=== PATIENT | male | born 1935 | race Caucasian/White ===

== ENCOUNTER 2018-08-30 09:51 | Observation (INO) | payer MEDICARE ==
[2018-08-27 16:13] LABS: BASOPHILS % 0.5 % (0.0-1.0); EOSINOPHILS # (AUTO) 0.1 (0.0-0.4); EOSINOPHILS % 1.9 % (0.0-6.0); HEMATOCRIT 34.7 % (38.2-49.6); HEMOGLOBIN 10.9 g/dL (14.0-18.0); LYMPHOCYTES # (AUTO) 1.3 (1.0-3.2); LYMPHOCYTES % 17.5 % (18.0-39.1); MEAN CORPUSCULAR HEMOGLOBIN 29.5 pg (28-32); MEAN CORPUSCULAR HGB CONC 31.4 g/dL (31-35); MEAN CORPUSCULAR VOLUME 93.8 fL (81-99); MONOCYTES # (AUTO) 0.7 (0.2-0.8); MONOCYTES % 9.9 % (4.4-11.3); NEUTROPHILS # (AUTO) 5.2 (2.1-6.9); NEUTROPHILS % 69.8 % (38.7-80.0); PLATELET COUNT 262 x10e3/uL (140-360); RED CELL DISTRIBUTION WIDTH 15.6 % (11.7-14.4)
[2018-08-27 16:28] LABS: ANION GAP 12.2 mmol/L (8-16); CALCIUM 9.3 mg/dL (8.4-10.2); CREATININE, SERUM 2.03 mg/dL (0.72-1.25); POTASSIUM 4.2 mmol/L (3.5-5.1)
--- NOTE | 2018-08-27 16:51 | Diagnostic Imaging Report ---
EXAMINATION: CHEST 2 VIEWS INDICATION: ^PREOP COMPARISON: Chest radiograph dated 07/13/2015 FINDINGS: AP and lateral view TUBES and LINES: Left-sided dual-lead pacer. Right-sided AICD.. LUNGS/PLEURA: Calcified granulomas in the right lower lobe and left upper lobe. Bilateral interstitial prominence. No pleural effusion or pneumothorax. HEART AND MEDIASTINUM: Borderline enlarged cardiac silhouette. Sternotomy. BONES AND SOFT TISSUES: No acute osseous lesion. Soft tissues are unremarkable. UPPER ABDOMEN: No free air under the diaphragm. IMPRESSION: No acute thoracic abnormality. Signed by: Augusto Johnson MD on 08/27/2018 4:48 PM
[2018-08-30 08:10] LABS: INR 1.13
[2018-08-30 08:11] LABS: PARTIAL THROMBOPLASTIN TIME 32.6 seconds (23.8-35.5)
[~2018-08-30 09:51] MED LIST: ALPRAZOLAM0.25 MG PO; ASPIR 8181 MG PO; ATORVASTATIN CA20 MG PO; BUPIVACAINE 7.5MG/ML /DEXTROSE 82.5MG/ML 2 ML AMP INJ ONE; CARVEDILOL12.5 MG PO; CEFTRIAXONE SOD 1 GM/NS 50 ML 50 ML IV ONE; CRESTOR20 MG PO; FENOFIBRATE PO; FINASTERIDE5 MG PO; FLOMAX0.4 MG PO; FOLIC ACID1 MG PO; GABAPENTIN300 MG PO; GLIPIZIDE5 MG PO; ISOSORBIDE MONO60 MG PO; JANUVIA100 MG PO; KLOR-CON M2020 MEQ PO; LANTUS100 UNITS/ SQ; LASIX80 MG PO; LIDOCAINE 2%/ EPINEPHRINE 20ML MDV ONE; LISINOPRIL5 MG PO; MECLIZINE HCL12.5 MG PO; MUPIROCIN 2% OINT 22 GM TUBE ONE; PLAVIX75 MG PO; RAPAFLO8 MG PO; TERBINAFINE HC250 MG PO; TOUJEO SQ; TRAZODONE HCL50 MG PO; ULTRAM50 MG PO; VITAMIN D1000 UNI1 PO; WARFARIN SODIUM5 MG PO; [UNRECOGNIZED DRUG - OTHER] SC
[2018-08-30] MEDS ORDERED: FENTANYL CITRATE/PF 100MCG/2 ML INJ ONE (10:50)
--- OUTSIDE RECORDS SUMMARY | 2018-08-30 11:17 | XMS REPORT ---
[facility] Address Unknown Phone Unavailable Care Team Providers Care Senior Product Development Manager Name Role Phone Rashida ORTIZ Unavailable Unavailable Problems This patient has no known problems. Allergies, Adverse Reactions, Alerts This patient has no known allergies or adverse reactions. Medications This patient has no known medications. Results Test Description Test Time Test Comments Text Results Atomic Results Result Comments CHEST 2 VIEWS 2018-08-27 16:46:00 [place] [id number] Patient Name: DURAN PERALES MR #: [id number] : 1935 Age/Sex: 83/M Req #: [id number] Adm Physician: Ordered by: ARIELLE ORTIZ MD Report #: [id number] Location: OR Room/Bed: Procedure: [id number] DX/CHEST 2 VIEWS Exam Date: Exam Time: REPORT STATUS: Signed EXAMINATION: CHEST 2 VIEWS INDICATION: PREOP COMPARISON: Chest radiograph dated 07/13/2015 FINDINGS: AP and lateral view TUBES and LINES: Left-sided dual-lead pacer. Right-sided AICD.. LUNGS/PLEURA: Calcified granulomas in the right lower lobe and left upper lobe. Bilateral interstitial prominence. No pleural effusion or pneumothorax. HEART AND MEDIASTINUM: Borderline enlarged cardiac silhouette. Sternotomy. BONES AND SOFT TISSUES: No acute osseous lesion. Soft tissues are unremarkable. UPPER ABDOMEN: No free air under the diaphragm. IMPRESSION: No acute thoracic abnormality. Signed by: Augusto Simon MD on 08/27/2018 4:48 PM Dictated By: URVASHI SIMON MD 47 Transcribed By: AGUILA on 08/27/181647 COPY TO: ARIELLE ORTIZ MD
[2018-08-30 12:20] VITALS: BP 151/64
--- NOTE | 2018-08-30 12:20 | NUR ---
RECD PT FROM PACU VIA STRETCHER,AWAKE ,DENIES PAIN ,VELASCO TO BSD BLOODY URINE,DENIES PAIN,LEGS FEEL NUMB AFTER EPIDURAL,IV INFUSING TO RT AC PATENT.
--- NOTE | 2018-08-30 12:20 | NUR ---
DRSG TO SCROTAL AREA CD&I,SCROTAL SUPPORT IN PLACE.
[2018-08-30 12:25] VITALS: BP 151/64
[2018-08-30] MEDS ORDERED: ACETAMINOPHEN/CODEINE 300MG - 30MG TAB PO PRN (14:45)
[2018-08-30] MEDS ORDERED: TRAMADOL HCL 50 MG TAB PO PRN ×2 (14:45→15:15)
[2018-08-30] MEDS ORDERED: DEXTROSE 5% 1,000 ML IV ONE (14:45)
[2018-08-30] MEDS: ACETAMINOPHEN/CODEINE 300MG - 30MG TAB PO PRN ×3 (15:00→22:46)
[2018-08-30] MEDS ORDERED: DEXTROSE 50% SYRINGE 50 ML IV PRN (15:15)
--- NOTE | 2018-08-30 15:34 | NUR ---
PT C/O SCROTAL PAIN -MEDICATED.
[2018-08-30 16:01] VITALS: BP 134/61
[2018-08-30] MEDS: ALPRAZOLAM 0.25 MG TAB PO SCH (16:08)
[2018-08-30 16:17] VITALS: BP 169/69
--- NOTE | 2018-08-30 16:30 | NUR ---
PT VERY ANXIOUS,REQUESTED ANXIETY MEDICATION ,MEDICATED
[2018-08-30] MEDS: CARVEDILOL 12.5 MG TAB PO SCH (17:00)
[2018-08-30] MEDS ORDERED: PHENYLEPHRINE HCL 1% 10 MG/ML VIAL ONE (17:25)
[2018-08-30] MEDS: GABAPENTIN 300 MG CAP PO SCH ×2 (18:00→21:52)
[2018-08-30] MEDS ORDERED: MIDAZOLAM HCL 2 MG/2 ML VIAL ONE (18:23)
--- NOTE | 2018-08-30 18:39 | NUR ---
PT RESTING STILL ANXIOUS,AND PAIN LEVEL 3,VELASCO TO BSD BLOOD TINGED URINE.IV INFUSING
--- NOTE | 2018-08-30 19:48 | NUR ---
Received change of shift report from AM nurse. Rounds completed.
[2018-08-30 20:00] VITALS: BP 142/62
[2018-08-30] MEDS ORDERED: TRAZODONE HCL 50 MG TAB PO SCH (21:00)
[2018-08-30] MEDS: TRIMETHOPRIM/SULFAMETHOXAZOLE 160-800 MG TAB PO SCH (21:00)
[2018-08-30] MEDS: ATORVASTATIN 40 MG TAB PO SCH (21:00)
[2018-08-30] MEDS: TOUJEO 30 UNIT SQ SCH (21:00)
[2018-08-30] MEDS: TRAZODONE HCL 50 MG TAB PO SCH (21:00)
--- NOTE | 2018-08-30 21:00 | NUR ---
Patient c/o pain =4. Given pain med as ordered by MD. Repositioned in bed. Patient is pleasantly confused. Daughter at bedside. F/U on effectiveness of pain med. Santamaria Irragation going at med/slow rate. red urine. Right IV AC. Dry intact and patent. raped IV site with kerlix to prevent pt pulling out. Continue monitor.
[2018-08-31] VITALS (8 sets, daily range): BP systolic 118–143; BP diastolic 56–74
--- NOTE | 2018-08-31 05:51 | NUR ---
Patient resting quitly. at this time.
[2018-08-31 07:01] LABS: ANION GAP 11.7 mmol/L (8-16); CALCIUM 9.1 mg/dL (8.4-10.2); CREATININE, SERUM 1.76 mg/dL (0.72-1.25); POTASSIUM 3.7 mmol/L (3.5-5.1)
--- NOTE | 2018-08-31 07:17 | NUR ---
PATIENT IN BED WITH HEAD OF BED ELEVATED, NO RESPIRATORY DISTRESS OBSERVED. BLADDER IRRIGATION IN PROGRESS WITH BLOODY RETURN. SCROTUM SWOLLEN AND ELEVATED. DENIED PAIN AT THIS TIME. REDNESS AND SWELLING TO LOWER EXTREMITIES, CLOSE BLISTER NOTED TO LEFT FOOT. BED IN LOWER POSITION, CALL LIGHT AT REACH.
[2018-08-31] MEDS ORDERED: FUROSEMIDE 40 MG PO SCH (09:00)
[2018-08-31] MEDS ORDERED: FOLIC ACID 1 MG TAB PO SCH (09:00)
[2018-08-31] MEDS ORDERED: CHOLECALCIFEROL 1,000 UNIT TAB PO SCH (09:00)
[2018-08-31] MEDS: TOUJEO 30 UNIT SQ SCH ×2 (09:00→20:58)
[2018-08-31] MEDS ORDERED: FENOFIBRATE 135 MG PO SCH (09:00)
[2018-08-31] MEDS ORDERED: ATORVASTATIN 20 MG TAB PO SCH (09:00)
[2018-08-31] MEDS ORDERED: NON-FORMULARY MEDICATION (Isosorbide Mononitrate (Isosorbide Mononitrate Er) 60 MG) PO SCH (09:00)
[2018-08-31] MEDS ORDERED: CHOLECALCIFEROL 400 UNIT TAB PO SCH (09:00)
[2018-08-31] MEDS: CARVEDILOL 12.5 MG TAB PO SCH ×2 (09:13→17:46)
[2018-08-31] MEDS: TRIMETHOPRIM/SULFAMETHOXAZOLE 160-800 MG TAB PO SCH ×2 (09:13→20:56)
[2018-08-31] MEDS: ISOSORBIDE MONONITRATE 20 MG TAB PO SCH (09:13)
[2018-08-31] MEDS: FOLIC ACID 1 MG TAB PO SCH (09:13)
[2018-08-31] MEDS: TAMSULOSIN HCL 0.4 MG CAP PO SCH (09:13)
[2018-08-31] MEDS: POTASSIUM CHLORIDE 20 MEQ TAB CR PO SCH (09:14)
[2018-08-31] MEDS: FUROSEMIDE 40 MG TAB PO SCH (09:14)
[2018-08-31] MEDS: CHOLECALCIFEROL 1,000 UNIT TAB PO SCH (09:14)
[2018-08-31] MEDS: SITAGLIPTIN 100 MG TAB PO SCH (09:14)
[2018-08-31] MEDS: FENOFIBRATE 145 MG TAB PO SCH (09:14)
[2018-08-31] MEDS: FINASTERIDE 5 MG TAB PO SCH (09:14)
[2018-08-31] MEDS: GABAPENTIN 300 MG CAP PO SCH ×4 (09:14→20:57)
[2018-08-31] MEDS: ACETAMINOPHEN/CODEINE 300MG - 30MG TAB PO PRN ×2 (10:30→20:58)
--- NOTE | 2018-08-31 11:22 | NUR ---
PATIENT ASSISTED TO THE RESTROOM AND BACK TO BED. BLADDER IRRIGATION IN PROGRESS. BED IN LOWER POSITION, CALL LIGHT AT REACH.
--- NOTE | 2018-08-31 12:30 | NUR ---
CALL RECEIVED FROM MD REQUESTING BLADDER IRRIGATION TO BE HELD UNTIL HE SEES THE PATIENT. ORDER IMPLEMENTED.
--- NOTE | 2018-08-31 16:31 | NUR ---
FAMILY MEMBER REQUESTED TO SPEAK TO MD, CALL PLACED, AND MESSAGE LEFT TO ANSWERING SERVICE. AWAITING CALL BACK.
[2018-08-31] MEDS: TRAZODONE HCL 50 MG TAB PO SCH (20:56)
[2018-08-31] MEDS: ATORVASTATIN 40 MG TAB PO SCH (20:57)
[2018-08-31] MEDS: ALPRAZOLAM 0.25 MG TAB PO SCH (20:57)
[2018-09-01] VITALS: BP 134/60
[2018-09-01 04:00] VITALS: BP 121/57
--- NOTE | 2018-09-01 06:15 | NUR ---
removed coude, bright red blood draining from penis. held pressure on penile head for 10 min, patient stopped bleeding. Will continue to monitor. patient DTV 1430.
--- NOTE | 2018-09-01 07:12 | NUR ---
PATIENT IN BED RESTING WITH EYES CLOSED, NO RESPIRATORY DISTRESS OBSERVED. VELASCO CATHETER REMOVED BY PREVIEWS NURSE, SMALL AMOUNT OF BLOOD TO THE TIP OF PENIS, PATIENT IS DUE TO VOID. BED IN LOWER POSITION, CALL LIGHT AT REACH.
[2018-09-01 07:16] VITALS: BP 133/62
[2018-09-01 07:51] VITALS: BP 133/62
[2018-09-01] MEDS: TOUJEO 30 UNIT SQ SCH (09:00)
[2018-09-01] MEDS: TRIMETHOPRIM/SULFAMETHOXAZOLE 160-800 MG TAB PO SCH (09:48)
[2018-09-01] MEDS: FOLIC ACID 1 MG TAB PO SCH (09:49)
[2018-09-01] MEDS: ISOSORBIDE MONONITRATE 20 MG TAB PO SCH (09:49)
[2018-09-01] MEDS: CARVEDILOL 12.5 MG TAB PO SCH (09:49)
[2018-09-01] MEDS: SITAGLIPTIN 100 MG TAB PO SCH (09:49)
[2018-09-01] MEDS: TAMSULOSIN HCL 0.4 MG CAP PO SCH (09:49)
[2018-09-01] MEDS: POTASSIUM CHLORIDE 20 MEQ TAB CR PO SCH (09:50)
[2018-09-01] MEDS: FENOFIBRATE 145 MG TAB PO SCH (09:50)
[2018-09-01] MEDS: GABAPENTIN 300 MG CAP PO SCH (09:50)
[2018-09-01] MEDS: FINASTERIDE 5 MG TAB PO SCH (09:50)
[2018-09-01] MEDS: FUROSEMIDE 40 MG TAB PO SCH (09:50)
[2018-09-01] MEDS: CHOLECALCIFEROL 1,000 UNIT TAB PO SCH (09:50)
--- NOTE | 2018-09-01 10:16 | NUR ---
PATIENT VOIDED 50 CC OF BLOODY URINE. IN BED WITH CALL LIGHT AT REACH.
[2018-09-01 11:55] VITALS: BP 120/60
--- NOTE | 2018-09-01 13:15 | NUR ---
PATIENT DISCHARGED HOME. DISCHARGE INSTRUCTIONS AND FOLLOW UP GIVEN TO PATIENT AND DAUGHTER, THEY VERBALIZED UNDERSTANDING. IV TO RIGHT AC REMOVED WITH TIP INTACT. ALL PERSONAL ITEMS TAKEN WITH PATIENT. LEFT UNIT PER WHEEL CHAIR TO FRONT LOBBY IN STABLE CONDITION.
--- NOTE | 2018-10-23 15:08 | Operative Report ---
DATE OF PROCEDURE: 08/30/2018 SURGEON: Jaycob Rachel MD PREOPERATIVE DIAGNOSES: 1. Bladder outlet obstruction. 2. Redundant scrotum. POSTOPERATIVE DIAGNOSES: 1. Bladder outlet obstruction. 2. Redundant scrotum. OPERATIVE PROCEDURE: 1. Cystoscopy. 2. Transurethral resection of the prostate. 3. Scrotoplasty. ANESTHESIA: Spinal anesthesia. ESTIMATED BLOOD LOSS: Minimal. INDICATIONS: Mr. Renner is an 83-year-old gentleman with a long history of bladder outlet obstruction, which has failed conservative management. He also complains of significant redundant scrotum, which is bothersome. He now presents for definitive management of both problems. PROCEDURE IN DETAIL: The patient was brought in the operating room and after administration of spinal anesthesia, was placed in dorsal lithotomy position, prepped and draped in usual sterile fashion. Cystourethroscopy was performed using 21-Malian cystoscope. The anterior and posterior urethra were noted to be normal. The prostate revealed trilobar hyperplasia, but it was a relatively short fossa. The bladder was entered with mild difficulty. Upon entrance into the bladder, the ureteral orifices were in normal anatomic position, produced clear efflux. There were no mucosal lesions identified. There were grade 2 to 3 trabeculations noted throughout with cellules and tics noted. The bladder was left full and the cystoscope and sheath were removed. A 26-Malian resectoscope sheath was placed in a retrograde fashion and ZeroFOX resectoscope was used to perform the procedure. Beginning at the 1 o'clock position and proceeding in a clockwise fashion down to the 6 o'clock position, all the adenomatous tissue between the bladder neck and the veru was resected down to the level of the surgical capsule. There was no gross penetration or perforation of the capsule noted. A similar procedure was performed on the contralateral side in a counter-clockwise fashion again beginning at the 11 o'clock position and again ending at the 6 o'clock position. Again, all the adenomatous tissue was removed and sent to pathology for microscopic analysis. The residual tissue seen on the roof and floor of the bladder was then dissected free. The [employer] evacuator was used to remove all chips. These were sent to pathology for microscopic analysis. Once adequate hemostasis was obtained, the resectoscope and sheath were removed and a 24-Malian coude 3-way catheter was placed. Prior to replacement of the catheter, the patient was noted to have a good urinary flow with coude. The balloon was inflated with about approximately 45 mL of sterile water. Attention was then directed to the redundant scrotum. An elliptical incision approximately 5 cm in greatest diameter was removed, and dissection was carried down to the dartos layer. The hemostasis was obtained using electrocautery device. Once this was complete, the scrotal skin was reapproximated closed using interrupted chromic sutures. The wound was then cleaned and dried and covered with Telfa gauze and placed in a scrotal support. The catheter was started on continuous bladder irrigation. The patient returned to supine position and transferred to a bed and taken to the postanesthesia care unit in good condition. Of note, the needle and instrument count were correct at the conclusion of the case. MD KELLEY Carias/BASILIA /[id number]
== END 2018-09-01 13:33 | disposition home or self-care (01) ==
LOC: OR 09:51 → PACU V 10:32 → MED/SURG3 12:25
PROVIDERS: ADMIT Urology; ATTEND Urology
DX: N40.1 Benign prostatic hyperplasia with lower urinary tract symptoms (principal); N13.8 Other obstructive and reflux uropathy; N50.89 Other specified disorders of the male genital organs; N39.0 Urinary tract infection, site not specified; Z83.3 Family history of diabetes mellitus; Z82.49 Family history of ischemic heart disease and other diseases of the circulatory system; I25.10 Atherosclerotic heart disease of native coronary artery without angina pectoris; E11.9 Type 2 diabetes mellitus without complications; Z79.4 Long term (current) use of insulin
CPT/HCPCS: 36415 ×4; 52601; 55175; 71046; 80048 ×2; 82948 ×3; 85025; 85610; 85730; 88305; G0378 ×3; J0696; J2001; J2250; J2370; J7070

== ENCOUNTER 2018-09-08 13:54 | Observation (INO) | payer MEDICARE ==
[~2018-09-08] VITALS: Ht 188 cm; Wt 102.2 kg
[~2018-09-08 13:54] MED LIST changes: -BUPIVACAINE 7.5MG/ML /DEXTROSE 82.5MG/ML 2 ML AMP INJ ONE; -CEFTRIAXONE SOD 1 GM/NS 50 ML 50 ML IV ONE; -LIDOCAINE 2%/ EPINEPHRINE 20ML MDV ONE; -MUPIROCIN 2% OINT 22 GM TUBE ONE
[2018-09-08 14:33] LABS: CLARITY,URINE SL CLOUDY (CLEAR); COLOR,URINE RED (YELLOW)
[2018-09-08 14:34] LABS: BILIRUBIN,URINE NEGATIVE (NEGATIVE); KETONES,URINE NEGATIVE (NEGATIVE); LEUKOCYTE ESTERASE ,URINE 1+ (NEGATIVE); NITRITE,URINE NEGATIVE (NEGATIVE); PROTEIN,URINE DIPSTICK 2+ (NEGATIVE); URINE UROBILINOGEN 0.2 mg/dL (0.2 - 1)
[2018-09-08 14:42] LABS: WBC,URINE (MAN) 21-50 /HPF (0-5)
[2018-09-08 14:43] LABS: EPITHELIAL CELLS,URINE FEW /LPF; RBC,URINE >50 /HPF (0-5)
[2018-09-08 15:14] LABS: BASOPHILS # (AUTO) 0.1 (0.0-0.1); BASOPHILS % 0.7 % (0.0-1.0); EOSINOPHILS # (AUTO) 0.3 (0.0-0.4); EOSINOPHILS % 4.8 % (0.0-6.0); HEMATOCRIT 31.3 % (38.2-49.6); HEMOGLOBIN 9.7 g/dL (14.0-18.0); LYMPHOCYTES # (AUTO) 1.7 (1.0-3.2); LYMPHOCYTES % 24.1 % (18.0-39.1); MEAN CORPUSCULAR HEMOGLOBIN 28.8 pg (28-32); MEAN CORPUSCULAR VOLUME 92.9 fL (81-99); MONOCYTES # (AUTO) 0.5 (0.2-0.8); MONOCYTES % 7.8 % (4.4-11.3); NEUTROPHILS # (AUTO) 4.3 (2.1-6.9); PLATELET COUNT 330 x10e3/uL (140-360); RED BLOOD COUNT 3.37 x10e6/uL (4.3-5.7); RED CELL DISTRIBUTION WIDTH 15.5 % (11.7-14.4)
[2018-09-08 15:29] LABS: INR 1.32
[2018-09-08 15:30] LABS: PARTIAL THROMBOPLASTIN TIME 30.6 seconds (23.8-35.5)
[2018-09-08 15:36] LABS: ALBUMIN 3.5 g/dL (3.5-5.0); ANION GAP 10.8 mmol/L (8-16); CALCIUM 9.2 mg/dL (8.4-10.2); CREATININE, SERUM 2.48 mg/dL (0.72-1.25); POTASSIUM 3.8 mmol/L (3.5-5.1)
[2018-09-08] MEDS ORDERED: SODIUM CHLORIDE 0.9% 1000ML 1,000 ML IV ONE (16:45)
[2018-09-08] MEDS ORDERED: ONDANSETRON HCL INJ 2MG/ML 2ML 2 MG/ML VIAL IV PRN (16:45)
[2018-09-08] MEDS ORDERED: ACETAMINOPHEN 325 MG TAB PO PRN (16:45)
[2018-09-08] MEDS: MEROPENEM 500MG/ NS 50ML 50 ML IV SCH ×2 (16:59→22:04)
--- NOTE | 2018-09-08 17:02 | NUR ---
VELASCO INSERTED BY WHITNEY JOYCE PER MARIA DEL CARMEN APPROX 300 CC URINE CAME OUT
--- NOTE | 2018-09-08 17:10 | NUR ---
Kenna vogt from ER, AAOx3, assisted him to bed with 2 person assist, on weiss, denies any pain or SOB, FAMILY AT BEDSIDE, Call light in reach.
--- NOTE | 2018-09-08 17:14 | NUR ---
PT EATING MEAL IN ROOM IN BED
[2018-09-08 17:44] VITALS: BP 167/74
[2018-09-08 17:49] VITALS: BP 167/74
--- NOTE | 2018-09-08 19:47 | NUR ---
GOT REPORT FROM PREVIOUS NURSE. PATIENT IN BED. NO PAIN OR DISTRESS. CALL LIGHT WITHIN REACH. DAUGHTER AT BEDSIDE.
[2018-09-08 20:00] VITALS: BP 157/73
[2018-09-09] VITALS: BP 139/74
[2018-09-09] MEDS ORDERED: SODIUM CHLORIDE 0.9% 1000ML 1,000 ML ONE (02:47)
[2018-09-09 04:00] VITALS: BP 154/84
[2018-09-09 05:15] LABS: BASOPHILS # (AUTO) 0.1 (0.0-0.1); BASOPHILS % 0.6 % (0.0-1.0); EOSINOPHILS # (AUTO) 0.4 (0.0-0.4); EOSINOPHILS % 4.4 % (0.0-6.0); HEMATOCRIT 31.9 % (38.2-49.6); HEMOGLOBIN 10.1 g/dL (14.0-18.0); LYMPHOCYTES # (AUTO) 1.5 (1.0-3.2); LYMPHOCYTES % 18.1 % (18.0-39.1); MEAN CORPUSCULAR HEMOGLOBIN 29.1 pg (28-32); MEAN CORPUSCULAR HGB CONC 31.7 g/dL (31-35); MEAN CORPUSCULAR VOLUME 91.9 fL (81-99); MONOCYTES # (AUTO) 0.6 (0.2-0.8); NEUTROPHILS # (AUTO) 5.8 (2.1-6.9); NEUTROPHILS % 69.2 % (38.7-80.0); PLATELET COUNT 363 x10e3/uL (140-360); RED BLOOD COUNT 3.47 x10e6/uL (4.3-5.7); RED CELL DISTRIBUTION WIDTH 15.4 % (11.7-14.4)
[2018-09-09 05:45] LABS: ALBUMIN 3.5 g/dL (3.5-5.0); ANION GAP 12.7 mmol/L (8-16); CALCIUM 9.3 mg/dL (8.4-10.2); CREATININE, SERUM 2.06 mg/dL (0.72-1.25); POTASSIUM 3.7 mmol/L (3.5-5.1)
--- NOTE | 2018-09-09 06:54 | NUR ---
Gave report to oncoming nurse. Patient in bed. No pain or distress. call light within reach.
[2018-09-09 07:33] VITALS: BP 136/81
[2018-09-09] MEDS: MEROPENEM 500MG/ NS 50ML 50 ML IV SCH ×2 (09:48→22:15)
--- NOTE | 2018-09-09 09:58 | NUR ---
SW met with patient to give STOUT letter. Patient stated he wanted his to take a look at the document before he signed. He states she takes care of matters like this. SW explained STOUT and provided him with the form. SW will try to follow up with him when arrives.
--- NOTE | 2018-09-09 11:02 | NUR ---
patient resting in bed, Alert with no distress, Dr Rachel here for rounds, called and order recvd to renew home meds from Dr Ortiz
--- NOTE | 2018-09-09 11:03 | NUR ---
PT MEETS INPATIENT STATUS W/ UTI W/ RECENT UROLOGICAL PROCEDURE ON 08/30/18, TURP. NOTIFIED DR. HAWKINS AND AWAITING INPATIENT ORDER IF HE AGREES.
[2018-09-09 11:37] VITALS: BP 166/79
[2018-09-09] MEDS ORDERED: TRAMADOL HCL 50 MG TAB PO PRN (11:45)
[2018-09-09] MEDS ORDERED: MECLIZINE HCL 12.5 MG TAB PO PRN (11:45)
--- NOTE | 2018-09-09 12:16 | NUR ---
BLAYNE barba Santamaria out by 11:40, patient urinated by this time, pinkish urine
--- NOTE | 2018-09-09 12:50 | NUR ---
Helped the patient to use bed side commode with assist, while he is on Bedside commode he stated he feel dizzy, short of breath and fainting. Put him on Oxygen 3L NC, BP elevated 190/80, assisted him to bed, boarding house cook and family in the room. Paged and new order recvd from Dr Ortiz to keep him in Telemetry, new BP med Hydralazine 25mg q8 PO
[2018-09-09] MEDS: ISOSORBIDE MONONITRATE 30 MG TAB CR PO SCH (13:18)
[2018-09-09] MEDS: CARVEDILOL 12.5 MG TAB PO SCH (13:18)
[2018-09-09] MEDS ORDERED: BISACODYL 5 MG TAB EC PO ONE (13:30)
[2018-09-09] MEDS: HYDRALAZINE HCL 25 MG TAB PO SCH ×2 (14:04→22:16)
[2018-09-09] MEDS: ALPRAZOLAM 0.25 MG TAB PO PRN ×2 (14:05→22:25)
--- NOTE | 2018-09-09 14:10 | NUR ---
Patient seems to be so anxious, his at bed side stated he usually anxious times and he take PRN anxiety med. PRN Anxiety med given, keep monitoring , patient not in distress now, he talking to his visitors now
[2018-09-09] MEDS: GABAPENTIN 300 MG CAP PO SCH ×3 (15:04→22:15)
[2018-09-09 15:22] VITALS: BP 129/60
--- NOTE | 2018-09-09 15:32 | NUR ---
patient resting in bed with no distress, at bed side
--- NOTE | 2018-09-09 18:15 | NUR ---
History and Physical cc: bloody stool HPI: 83yoM, PCP??, Urology , recently had TURP, on coumadin now having bloody stool. 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 anemia PLAN Hold AC and ASA Urology consult hba1c/lipids Kain Ortiz MD, PhD
--- NOTE | 2018-09-09 18:50 | NUR ---
Got report from previous nurse. Patient in bed. Call light within reach. had a big bm.
--- NOTE | 2018-09-09 18:50 | NUR ---
Changed diaper X2 in 1 hr from 6 pm, patient trying to defecate by putting his left hand finger on the rectum. Helped him to use bed side commode, had a big bowel movement , assisted him back to bed, patient stated he feels better now, call light in reach, bed in lowest position, bed alarm ON, keep monitoring, report given to PM shift nurse
[2018-09-09 20:00] VITALS: BP 141/65
--- NOTE | 2018-09-09 20:27 | NUR ---
Talked to Dr. Rachel about patient requesting a cath. Dr. Rachel said to place condom cath on patient.
[2018-09-09] MEDS ORDERED: ALPRAZOLAM 0.25 MG TAB PO SCH (21:00)
[2018-09-09] MEDS ORDERED: TRAZODONE HCL 50 MG TAB PO SCH (21:00)
--- NOTE | 2018-09-09 22:55 | NUR ---
Patient request to have a cath. Dr. Rachel notified and said to place a condom cath on the patient. Patient now has condom cath.
[2018-09-10] VITALS (7 sets, daily range): BP systolic 119–157; BP diastolic 56–74
[2018-09-10] MEDS: HYDRALAZINE HCL 25 MG TAB PO SCH ×2 (05:21→14:00)
--- NOTE | 2018-09-10 07:15 | NUR ---
Report given to oncoming nurse. Call light within reach. Patient asleep in bed
--- NOTE | 2018-09-10 07:28 | NUR ---
PATIENT IN BED RESTING WITH EYES CLOSED, NO RESPIRATORY DISTRESS OBSERVED, BED IN LOWER POSITION, CALL LIGHT AT REACH.
[2018-09-10] MEDS: MEROPENEM 500MG/ NS 50ML 50 ML IV SCH (09:00)
[2018-09-10] MEDS ORDERED: CHOLECALCIFEROL 1,000 UNIT TAB PO SCH (09:00)
[2018-09-10] MEDS ORDERED: TAMSULOSIN HCL 0.4 MG CAP PO SCH (09:00)
[2018-09-10] MEDS ORDERED: POTASSIUM CHLORIDE 20 MEQ TAB CR PO SCH (09:00)
[2018-09-10] MEDS ORDERED: FUROSEMIDE 40 MG TAB PO SCH (09:00)
[2018-09-10] MEDS ORDERED: FOLIC ACID 1 MG TAB PO SCH ×2 (09:00)
[2018-09-10] MEDS ORDERED: FINASTERIDE 5 MG TAB PO SCH (09:00)
[2018-09-10] MEDS ORDERED: ATORVASTATIN 40 MG TAB PO SCH (09:00)
[2018-09-10] MEDS ORDERED: SITAGLIPTIN 100 MG TAB PO SCH (09:00)
[2018-09-10] MEDS ORDERED: ISOSORBIDE MONONITRATE 30 MG TAB CR PO SCH (09:00)
[2018-09-10] MEDS: GABAPENTIN 300 MG CAP PO SCH ×2 (09:23→13:04)
[2018-09-10] MEDS: CARVEDILOL 12.5 MG TAB PO SCH ×2 (09:23→17:19)
[2018-09-10] MEDS: ISOSORBIDE MONONITRATE 30 MG TAB CR PO SCH (09:23)
--- NOTE | 2018-09-10 11:45 | NUR ---
PATIENT ASSISTED TO THE RESTROOM AND BACK TO BED. HAD A LARGE BM. CALL LIGHT AT REACH, FAMILY AT BED SIDE.
[2018-09-10 15:26] LABS: HEMOGLOBIN 9.9 g/dL (14.0-18.0)
[2018-09-10 15:48] LABS: ANION GAP 12.3 mmol/L (8-16); CALCIUM 9.1 mg/dL (8.4-10.2); CREATININE, SERUM 2.04 mg/dL (0.72-1.25); POTASSIUM 4.3 mmol/L (3.5-5.1)
--- NOTE | 2018-09-10 15:48 | NUR ---
PATIENT ASSISTED WITH SHOWER. BACK IN BED WITH CALL LIGHT AT REACH.
--- NOTE | 2018-09-10 18:00 | NUR ---
PATIENT DISCHARGED HOME. DISCHARGE INSTRUCTIONS AND FOLLOW UP GIVEN TO PATIENT AND , THEY VERBALIZED UNDERSTANDING. IV TO LEFT AC REMOVED WITH TIP INTACT. ALL PERSONAL ITEMS TAKEN WITH PATIENT. LEFT UNIT PER WHEEL CHAIR TO FRONT LOBBY IN STABLE CONDITION.
[2018-09-11] MEDS ORDERED: FENOFIBRATE 145 MG TAB PO SCH (09:00)
== END 2018-09-10 17:52 | disposition home or self-care (01) ==
LOC: ER 13:54 → ERHOLD 16:33 → IMCU 17:30
PROVIDERS: ADMIT Internal Medicine; ATTEND Internal Medicine
DX: R31.0 Gross hematuria (principal); I48.91 Unspecified atrial fibrillation; Z79.01 Long term (current) use of anticoagulants; E11.42 Type 2 diabetes mellitus with diabetic polyneuropathy; E11.22 Type 2 diabetes mellitus with diabetic chronic kidney disease; I12.9 Hypertensive chronic kidney disease with stage 1 through stage 4 chronic kidney disease, or unspecified chronic kidney disease; N18.4 Chronic kidney disease, stage 4 (severe); N40.0 Benign prostatic hyperplasia without lower urinary tract symptoms; Z98.890 Other specified postprocedural states; D64.9 Anemia, unspecified; Z79.4 Long term (current) use of insulin
CPT/HCPCS: 36415 ×3; 51700; 80048; 80053 ×2; 80061; 81001; 82948 ×3; 83036; 85014; 85018; 85025 ×2; 85610; 85730; 86850; 86900; 87040; 87086; 93005; 99284; G0378 ×3; J2405; J7030 ×2; J8597

== ENCOUNTER 2018-11-27 16:05 | Emergency (ER) | payer MEDICARE ==
[~2018-11-27] VITALS: Ht 188 cm; Wt 102.1 kg
--- NOTE | 2018-11-27 17:31 | Diagnostic Imaging Report ---
EXAMINATION: Head and cervical spine CT without contrast. HISTORY: Status post fall on concrete about an hour ago, pain COMPARISON: None. TECHNIQUE: Multidetector axial images were obtained without contrast from the foramen magnum to the vertex and through the cervical spine. The images were reconstructed using brain and bone algorithms. Thin section brain images were reformatted into coronal and sagittal planes. Dose modulation, iterative reconstruction, and/or weight based adjustment of the mA/kV was utilized to reduce the radiation dose to as low as reasonably achievable. Image quality: Artifact from patient motion limits evaluation of the head. HEAD CT FINDINGS: Skull/difficult/: No lytic or blastic lesions. No fractures. Parenchyma: Mild to moderate confluent periventricular high matter hypodensities, most likely nonspecific chronic microvascular ischemic changes. No mass, hemorrhage or CT evidence of acute vascular insult. Brain volume: Normal for age. Ventricles: Mild ventriculomegaly, that is slightly out of proportion to the size of the cortical sulci, thinning and upward displacement of the corpus callosum, with relative partial effacement of the vertex region sulci. Some degree of normal pressure hydrocephalus cannot be excluded in the appropriate clinical setting Arteries: No density suggestive of thrombus. Dural sinuses: No abnormal density. Extra-axial spaces: No abnormal density. Foramen magnum: No mass, Chiari malformation, or basilar invagination. Sella: No obvious mass. Paranasal/mastoid sinuses: Imaged portions unremarkable. CERVICAL SPINE CT FINDINGS: Alignment:Minimal anterolisthesis at C3-C4 and retrolisthesis at C6-C7.. Soft tissues: Advanced atherosclerotic calcification of the carotid arteries with stent in the right carotid artery/carotid bulb. Emphysematous changes in the lung apices. Vertebrae: Irregularity of the dens may represent sequela of remote trauma, no discrete acute displaced fractures. Diffuse osteopenia. Degenerative changes: C1-C2: Degenerative changes without stenosis. C2-C3: Uncovertebral hypertrophy. Mild left foraminal narrowing. C3-C4: Disc osteophyte, inflammation, bilateral uncovertebral and facet arthrosis. Moderate bilateral foraminal stenosis. Mild canal narrowing. C4-C5: Disc osteophyte complex formation, uncovertebral and facet arthrosis. Moderately severe bilateral foraminal stenoses. C5-C6: Disc osteophyte complex formation, bilateral uncovertebral and facet hypertrophy. Mild canal and severe bilateral foraminal stenoses. C6-C7: Disc osteophyte complex formation, bilateral uncovertebral hypertrophy. Severe bilateral foraminal stenoses. C7-T1: Normal IMPRESSION: Head CT: 1. No acute postraumatic intracranial hemorrhage. 2. Mild chronic microvascular ischemic changes. 3. Mild ventriculomegaly as above. Cervical spine CT: 1. No acute fractures or dislocations. 2. Chronic degenerative changes as described. Note: Acute post traumatic spinal cord, vascular or ligamentous injury cannot adequately be assessed with CT. Signed by: Dr. Beatris Degroot M.D. on 11/27/2018 5:28 PM
[2018-11-27] MEDS ORDERED: TRAMADOL HCL 50 MG TAB PO NR (17:45)
[2018-11-27 18:14] VITALS: BP 162/72
== END 2018-11-27 18:15 | disposition home or self-care (01) ==
LOC: ER 16:05
DX: S00.83XA Contusion of other part of head, initial encounter (principal); S00.01XA Abrasion of scalp, initial encounter; S70.01XA Contusion of right hip, initial encounter; W01.0XXA Fall on same level from slipping, tripping and stumbling without subsequent striking against object, initial encounter; Y92.488 Other paved roadways as the place of occurrence of the external cause; I10 Essential (primary) hypertension; E11.9 Type 2 diabetes mellitus without complications; I25.10 Atherosclerotic heart disease of native coronary artery without angina pectoris; K21.9 Gastro-esophageal reflux disease without esophagitis; Z95.810 Presence of automatic (implantable) cardiac defibrillator
CPT/HCPCS: 70450; 72125; 99283

== ENCOUNTER 2019-05-18 21:42 | Inpatient (IN) | payer MEDICARE ==
[~2019-05-18] VITALS: Ht 188 cm; Wt 102.1 kg
[2019-05-18 22:26] LABS: BASOPHILS # (AUTO) 0.1 (0.0-0.1); BASOPHILS % 0.5 % (0.0-1.0); EOSINOPHILS # (AUTO) 0.4 (0.0-0.4); EOSINOPHILS % 3.9 % (0.0-6.0); HEMATOCRIT 31.7 % (38.2-49.6); HEMOGLOBIN 9.7 g/dL (14.0-18.0); LYMPHOCYTES # (AUTO) 2.1 (1.0-3.2); LYMPHOCYTES % 22.4 % (18.0-39.1); MEAN CORPUSCULAR HEMOGLOBIN 29.8 pg (28-32); MEAN CORPUSCULAR HGB CONC 30.6 g/dL (31-35); MEAN CORPUSCULAR VOLUME 97.2 fL (81-99); MONOCYTES # (AUTO) 0.8 (0.2-0.8); MONOCYTES % 8.3 % (4.4-11.3); NEUTROPHILS # (AUTO) 6.1 (2.1-6.9); NEUTROPHILS % 64.2 % (38.7-80.0); PLATELET COUNT 291 x10e3/uL (140-360); RED BLOOD COUNT 3.26 x10e6/uL (4.3-5.7)
[2019-05-18] MEDS ORDERED: ONDANSETRON HCL INJ 2MG/ML 2ML 2 MG/ML VIAL ONE (22:29)
[2019-05-18 22:39] LABS: INR 1.16; PROTHROMBIN TIME 15.4 seconds (11.9-14.5)
[2019-05-18 22:40] LABS: PARTIAL THROMBOPLASTIN TIME 27.2 seconds (23.8-35.5)
[2019-05-18 22:52] LABS: ALBUMIN 3.5 g/dL (3.5-5.0); ALBUMIN/GLOBULIN RATIO 1.3 (0.8-2.0); ANION GAP 19.2 mmol/L (8-16); CALCIUM 9.7 mg/dL (8.4-10.2); CREATININE, SERUM 2.51 mg/dL (0.72-1.25); POTASSIUM 5.2 mmol/L (3.5-5.1)
[2019-05-18 22:52] LABS: CLARITY,URINE CLEAR (CLEAR); COLOR,URINE YELLOW (YELLOW)
[2019-05-18 22:54] LABS: BILIRUBIN,URINE NEGATIVE (NEGATIVE); KETONES,URINE NEGATIVE (NEGATIVE); LEUKOCYTE ESTERASE ,URINE NEGATIVE (NEGATIVE); NITRITE,URINE NEGATIVE (NEGATIVE); PROTEIN,URINE DIPSTICK NEGATIVE (NEGATIVE); URINE UROBILINOGEN 0.2 mg/dL (0.2 - 1)
[2019-05-18 22:59] LABS: CREATINE KINASE MB 2.3 ng/mL (0-5.0)
[2019-05-18 23:12] LABS: AMORPHOUS SEDIMENT,URINE MANY (FEW); BACTERIA,URINE MANY /HPF; EPITHELIAL CELLS,URINE MODERATE /LPF; RBC,URINE 0-5 /HPF (0-5)
[2019-05-18] MEDS ORDERED: PANTOPRAZOLE 40 MG 10ML VIAL IV STA (23:13)
[2019-05-18] MEDS ORDERED: PANTOPRAZOLE INJ 40 MG in SODIUM CHLORIDE 0.9% 50ML 50 ML IV SCH (23:15)
[2019-05-19] VITALS (10 sets, daily range): BP systolic 133–173; BP diastolic 62–95
[2019-05-19] MEDS ORDERED: ONDANSETRON HCL INJ 2MG/ML 2ML 2 MG/ML VIAL IV STA (00:38)
--- NOTE | 2019-05-19 01:15 | NUR ---
PATIENT RECEIVED FROM ER. PATIENT HAD A LARGE LIQUID AND BLACK BM. PATIENT IS AAOX3. RESP EVEN AND UNLABORED. DENIES OF ANY PAIN AT THIS TIME. TELE IN PLACE. ORIENTED TO ROOM. CALL LIGHT WITHIN REACH. AT BED SIDE. BED LOW/LOCKED. CONTINUE TO MONITOR CLOSELY
--- NOTE | 2019-05-19 02:06 | Diagnostic Imaging Report ---
EXAMINATION: CHEST SINGLE (PORTABLE) INDICATION: ^UGIB ^[id number] ^0030 COMPARISON: 08/27/2018 FINDINGS: AP view TUBES and LINES: Stable dual-lead left hand single lead right chest wall cardiac devices. LUNGS: Lungs are well inflated. Pulmonary vascular congestion. PLEURA: No pleural effusion or pneumothorax. HEART AND MEDIASTINUM: The cardiac silhouette is enlarged. Median sternotomy wires are again seen. BONES AND SOFT TISSUES: No acute osseous lesion. Soft tissues are unremarkable. UPPER ABDOMEN: No free air under the diaphragm. IMPRESSION: Enlarged cardiac silhouette and pulmonary vascular congestion. Signed by: Dr. Daryl George MD on 05/19/2019 2:03 AM
[2019-05-19] MEDS ORDERED: SODIUM CHLORIDE 0.9% 250ML 250 ML ONE (02:10)
[2019-05-19] MEDS ORDERED: SOD POLYSTYRENE SULFONATE SUSP 15 GM/60 ML BTL PO ONE (02:15)
[2019-05-19] MEDS: PANTOPRAZOL 40MG/SOD CHL 0.9% 50 ML IV SCH ×5 (02:17→21:30)
--- NOTE | 2019-05-19 04:25 | NUR ---
PATIENT HAS BEEN HAVING MULTIPLE LIQUID AND DARK BM
[2019-05-19] MEDS ORDERED: MYRBETRIQ25 MG PO (04:53)
[2019-05-19] MEDS ORDERED: VITAMIN B-121000 MCG PO (04:53)
[2019-05-19] MEDS ORDERED: ASPIR 8181 MG PO (04:53)
[2019-05-19 06:50] LABS: HEMATOCRIT 24.7 % (38.2-49.6); HEMOGLOBIN 7.4 g/dL (14.0-18.0)
--- NOTE | 2019-05-19 07:00 | NUR ---
recieved am report and rounds done. pt is alert resting in bed, no s/s of distress. call light within reach and instructed pt to call RN for help. bed safety implemented. is at the bedside.
--- NOTE | 2019-05-19 09:16 | NUR ---
History and Physical cc: bleeding HPI: 83yoM, PCP , Nephr , Urology , GI , p/w vomiting blood and BRBPR, per , while on coumadin. Last colooscopy 2009, with complication of colonic rupture 1 week later. 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
[2019-05-19] MEDS ORDERED: MECLIZINE HCL 12.5 MG TAB PO PRN (09:30)
[2019-05-19] MEDS ORDERED: DIATRIZOATE MEGL/DIATRIZOA SOD 30 ML BTL PO ONE (10:24)
[2019-05-19 10:47] LABS: CHOL/HDL RATIO 4.8 (3.9-4.7)
[2019-05-19] MEDS ORDERED: FOLIC ACID 1 MG TAB PO SCH (11:00)
[2019-05-19] MEDS: CHOLECALCIFEROL 1,000 UNIT TAB PO SCH (11:00)
[2019-05-19] MEDS: CYANOCOBALAMIN 1,000 MCG TAB PO SCH (11:00)
[2019-05-19 11:07] LABS: FERRITIN 185.12 ng/mL (21.81-274.66)
[2019-05-19] MEDS: CEFTRIAXONE SOD 1 GM/NS 50 ML 50 ML IV SCH (12:30)
--- NOTE | 2019-05-19 12:42 | Diagnostic Imaging Report ---
CT Abdomen and Pelvis without contrast INDICATION ^GIB upper and lower ^[id number] ^1200 TECHNIQUE: Thin collimation axial images obtained from the diaphragm to the level of the pubic symphysis without nonionic intravenous contrast. Dose reduction techniques used: Automated exposure control, adjustment of the mAs and/or kVp according to patient size, standardized low-dose protocol, and/or iterative reconstruction technique. RADIATION DOSE: Total DLP: 759.61 mGy*cm Estimated effective dose: (DLP x 0.015 x size factor) mSv CTDIvol has been reviewed. It is below the limits set by the Radiation Protocol Committee (RPC). COMPARISON: None. ABDOMEN FINDINGS: Lung Bases: Cardiomegaly and cardiac pacing wires. Heavy calcifications of the coronary arteries. No pericardial effusion. Bibasilar atelectasis. Calcified granuloma in the inferior right middle lobe measures 1.3 x 1.5 cm Liver: Normal in attenuation without mass. Gallbladder: Present. There are 2 tiny calcifications near the gallbladder neck. No gallbladder wall thickening. No ductal dilatation. Pancreas: Diffuse fatty atrophy without mass or ductal dilatation. Spleen: Normal in size with numerous calcified granulomata. Adrenal Glands: No evidence for mass. Kidneys: Right: No renal calculus. Posterior upper pole mass measures 3.1 cm and 10 Hounsfield units suggestive of a cyst. No hydronephrosis Left: No renal calculus. Posterior cyst measures 15 mm with punctate peripheral calcification. No hydronephrosis Lymph Nodes: No lymphadenopathy. Aorta: Diffusely calcified but not aneurysmally dilated PELVIS FINDINGS: Bowel: Stomach: Contains mildly hyperattenuating material, possibly enteric contrast. Small Bowel: Normal in caliber with normal wall thickness. Large Bowel: Diverticulosis coli. No associated inflammation. Chain sutures in the distal sigmoid colon without associated mural thickening Appendix: Normal. Bladder: Multiple diverticula and circumferential mural thickening. No intraluminal calculi. Prostate gland measures 5.1 x 6.7 cm in the axial plane Ureters: No ureteral dilatation or calculus. Peritoneum/retroperitoneum: No free fluid or fluid collection. Bones: Degenerative changes of the spine. No compression deformities. No focal osseous lesions. Soft tissues: Fat-containing Spigelian hernia has an aperture of 5.0 cm. This may be the result of an abandoned left lower quadrant stoma. IMPRESSION: 1. Diverticulosis coli. No evidence of bowel obstruction or inflammation. High attenuating material in the stomach may be the result of enteric contrast or medication. 2. Prostate hypertrophy and bladder wall thickening from outlet obstruction. Multiple bladder diverticula. 3. Cholelithiasis. 4. Bilateral renal cysts. 5. Healed granulomatous inflammation. Signed by: Dr. Kiley Landry MD on 05/19/2019 12:38 PM
[2019-05-19 12:51] LABS: HEMOGLOBIN 7.7 g/dL (14.0-18.0)
[2019-05-19] MEDS: GABAPENTIN 300 MG CAP PO SCH ×3 (13:00→21:30)
[2019-05-19] MEDS: TRAMADOL HCL 50 MG TAB PO PRN (15:13)
[2019-05-19] MEDS: CARVEDILOL 12.5 MG TAB PO SCH (17:20)
--- NOTE | 2019-05-19 18:13 | NUR ---
Dr. Love (renal) is at the bedside talking with the patient and pt's family
--- NOTE | 2019-05-19 19:20 | NUR ---
Bedside rounds completed with morning nurse. Pt alert to name, lying in bed HOB 30 degrees. No s/s of pain at this time. Family at bedside. Call light within reach. Will continue to monitor.
[2019-05-19] MEDS ORDERED: PROPOFOL IV EMULSION 10 MG/ML 20 ML VIAL ONE (19:33)
[2019-05-19] MEDS ORDERED: TOUJEO 30 UNIT SQ SCH (21:00)
[2019-05-19 21:13] LABS: HEMATOCRIT 22.4 % (38.2-49.6)
[2019-05-19] MEDS: TRAZODONE HCL 50 MG TAB PO SCH (21:30)
[2019-05-19] MEDS: ALPRAZOLAM 0.25 MG TAB PO SCH (21:30)
[2019-05-19] MEDS: INSULIN GLARGINE 100 UNITS/ML VIAL SQ SCH (22:39)
[2019-05-20] VITALS (8 sets, daily range): BP systolic 125–147; BP diastolic 58–63
[2019-05-20 00:45] LABS: HEMATOCRIT 22.1 % (38.2-49.6)
[2019-05-20] MEDS ORDERED: LACTATED RINGER'S 1,000 ML IV ONE (01:00)
--- NOTE | 2019-05-20 01:00 | NUR ---
Rounds with Dr. Vasquez ordered LR @75ml/hr, occult stool, and consent for EGD later. Pt NPO.
[2019-05-20] MEDS ORDERED: DEXTROSE 50% SYRINGE 50 ML IV PRN ×2 (01:15→10:00)
--- NOTE | 2019-05-20 01:26 | Consultation ---
DATE OF CONSULTATION: 05/19/2019 Nephrology Consultation REASON FOR CONSULTATION: Chronic kidney disease. HISTORY OF PRESENT ILLNESS: The patient is an 84-year-old male with history of diabetes mellitus, hypertension, and chronic kidney disease, who was admitted early this morning with hematopoiesis and lower GI bleed. Apparently, he was hemodynamically stable. Admission labs showed elevated BUN and creatinine, prompting this consultation. The patient is currently maintained on an IV Protonix drip and is essentially asymptomatic. Denies any shortness of breath, chest pain, abdominal or flank pain, dysuria or gross hematuria. I did speak with his who told me that he does have a history of prostate enlargement and he was operated on a year or two ago. He also said that he follows with a guest relations coordinator every few months for chronic kidney disease, stage unknown to her. PAST MEDICAL HISTORY: As noted above. FAMILY HISTORY: Noncontributory. SOCIAL HISTORY: No tobacco or alcohol use. REVIEW OF SYSTEMS: Negative, except as noted above in HPI. MEDICATIONS: Noted in MAR. He is on carvedilol for blood pressure, and Lasix 40 mg daily. Was also taking a potassium supplement 20 mEq daily at home. He did receive a single dose of Kayexalate 30 g this morning for hyperkalemia. PHYSICAL EXAMINATION: GENERAL: The patient is awake and appears oriented. VITAL SIGNS: Stable. Blood pressure 145/83, pulse 100 per minute, afebrile. Respirations 20 per minute. SKIN: Appears to have normal turgor. No obvious lesions. HEENT: Normocephalic, atraumatic head. No icterus. Oral mucosa somewhat dry. NECK: Supple without jugular venous distention. CHEST: Auscultation reveals bilateral breath sounds anterolaterally. I do not hear any wheezing or crepitations. CARDIOVASCULAR: S1, S2 without rub or gallop. ABDOMEN: Soft, depressible, nontender. Not distended. EXTREMITIES: Without pitting edema or cyanosis. NEUROLOGICAL: Alert and appears oriented. Chest x-ray per report shows enlarged cardiac silhouette and pulmonary vascular congestion, although the lungs are well inflated. LABORATORY DATA: Most recent serum chemistries from last night showed a potassium of 5.2, creatinine 2.5, BUN 50, bicarb 28, sodium 142, glucose 220, albumin 3.5, hemoglobin 7.7 today, was 9.7 yesterday, normal platelet count and white count. Urinalysis on admission showed 2+ glucose, 6-10 white cells, 0-5 red cells, negative for protein. IMPRESSION: 1. Chronic kidney disease, stage unknown to me. EGFR 25 mL/minute on admission. Probably related to diabetes mellitus and hypertension. 2. Hyperkalemia, mild concerning hyperglycemia. Treated with Kayexalate. 3. Hypertension, currently controlled on carvedilol. 4. Anemia, likely related to chronic kidney disease with acute GI bleed. RECOMMENDATION: Continue investigation and management of the GI bleed. Repeat BMP tomorrow and react accordingly in case he is still hyperkalemic. Continue Lasix and current blood pressure medication. Avoid all known nephrotoxins such as aminoglycoside antibiotics, NSAIDs, and IV iodinated contrast as possible. Avoid AUDREY inhibitor and ARB. We will follow patient and recommend as indicated. Thank you for the opportunity to participate in his care. MD ALEKSEY Mock/[place]IL[place] /[id number]
[2019-05-20] MEDS: LACTATED RINGER'S 1,000 ML IV SCH ×3 (01:50→19:30)
[2019-05-20] MEDS: PANTOPRAZOL 40MG/SOD CHL 0.9% 50 ML IV SCH ×5 (04:00→19:30)
--- NOTE | 2019-05-20 07:00 | NUR ---
BEDSIDE SHIFT RECEIVED FROM THE COLLECTIONS ATTORNEY RN. PT IS AUDIE2. DAUGHTER AT BEDSIDE. EDUCATED PT ABOUT FALL PRECAUTIONS. CALL LIGHT WITH IN EASY REACH. INSTRUCTED PT TO USE CALL LIGHT FOR ALL THE NEEDS. PT VERBALIZED UNDERSTANDING. BED IS LOW AND LOCKED. SIDE RAILS X2. BED ALARM IS ON. PT DENIES NEEDS AT THIS TIME.
[2019-05-20 07:01] LABS: HEMATOCRIT 20.7 % (38.2-49.6)
[2019-05-20 07:10] LABS: HEMOGLOBIN 6.5 g/dL (14.0-18.0)
--- NOTE | 2019-05-20 07:15 | NUR ---
CALL RECEIVED FROM LAB. PAGED DR. HAWKINS AND REPORTED PT HGB AND HCT VALUES. NO NEW ORDERS RECEIVED.
[2019-05-20 07:29] LABS: ANION GAP 11.3 mmol/L (8-16); CALCIUM 9.2 mg/dL (8.4-10.2); CREATININE, SERUM 1.94 mg/dL (0.72-1.25); POTASSIUM 4.3 mmol/L (3.5-5.1)
[2019-05-20] MEDS ORDERED: INSULIN LISPRO 100 UNIT/1 ML 3ML VIAL SQ SCH (07:30)
--- NOTE | 2019-05-20 07:37 | NUR ---
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
--- NOTE | 2019-05-20 07:40 | NUR ---
CALL RECEIVED FROM DR. HAWKINS. GIVE 3 UNITS OF BLOOD PER THE
--- NOTE | 2019-05-20 07:47 | NUR ---
EGD SCHEDULES TODAY. PAGED DR. HAMILTON AND INFORMED ABOUT THE BLOOD TRANSFUSION ORDER.
[2019-05-20] MEDS ORDERED: SODIUM CHLORIDE 0.9% 250ML 250 ML IV ONE (08:15)
--- NOTE | 2019-05-20 09:30 | NUR ---
PAGED DR. HAWKINS REGARDING PT BLOOD SUGAR AND NPO STATUS. GIVE 15 UNITS LANTUS AND NEW ORDER FOR REGULAR INSULIN.
--- NOTE | 2019-05-20 09:34 | NUR ---
EGD LATER TODAY PER DR. HAMILTON. KEEP THE PT ON NPO. OKAY TO GIVE MORNING MEDS PER THE
[2019-05-20] MEDS: ATORVASTATIN 40 MG TAB PO SCH (10:00)
[2019-05-20] MEDS: CARVEDILOL 12.5 MG TAB PO SCH ×2 (10:00→17:45)
[2019-05-20] MEDS: INSULIN GLARGINE 100 UNITS/ML VIAL SQ SCH ×2 (10:00→20:58)
[2019-05-20] MEDS: FOLIC ACID 1 MG TAB PO SCH (10:00)
[2019-05-20] MEDS: CYANOCOBALAMIN 1,000 MCG TAB PO SCH (10:00)
[2019-05-20] MEDS: FUROSEMIDE 40 MG TAB PO SCH (10:00)
[2019-05-20] MEDS: GABAPENTIN 300 MG CAP PO SCH ×4 (10:00→20:57)
[2019-05-20] MEDS: CHOLECALCIFEROL 1,000 UNIT TAB PO SCH (10:00)
[2019-05-20 10:16] LABS: HEMATOCRIT 22.9 % (38.2-49.6); HEMOGLOBIN 7.1 g/dL (14.0-18.0)
[2019-05-20] MEDS: CEFTRIAXONE SOD 1 GM/NS 50 ML 50 ML IV SCH (11:05)
[2019-05-20] MEDS: INSULIN REGULAR, HUMAN 100 UNIT/1 ML 3ML VIAL SQ SCH ×4 (11:19→20:57)
[2019-05-20] MEDS ORDERED: SODIUM CHLORIDE 0.9% 250ML 250 ML ONE ×2 (13:11→20:10)
--- NOTE | 2019-05-20 13:40 | NUR ---
BLOOD TRANSFUSION STARTED. PT DAUGHTER AT BEDSIDE. CONSENT SIGNED BY THE DAUGHTER AT BEDSIDE SINCE PT IS IS WEAK. PT VERBALIZED UNDERSTANDING. DENIES NEEDS AT THIS TIME.
--- NOTE | 2019-05-20 15:45 | NUR ---
OR NURSE AT BEDSIDE TP BRANCH OFFICE MANAGER THE PT FOR EGD.
--- NOTE | 2019-05-20 15:50 | NUR ---
PT OFF UNIT FOR PROCEDURE IN SAFE CONDITION. BLOOD TRANSFUSION IS GOING ON. OR NURSE WITH THE PT.
--- NOTE | 2019-05-20 16:32 | NUR ---
PT BACK TO UNIT FROM OR. NO EGD TODAY. NEED CARDIAC CLEARANCE PER THE CONCRETE BATCHING PLANT OPERATOR. PT CAN EAT TODAY AND NPO FROM MIDNIGHT PER DR. HAMILTON. INFORMED THE SAME TO DR. HAWKINS.
--- NOTE | 2019-05-20 16:40 | NUR ---
BLOOD TRANSFUSION COMPLETED. NO DISTRESS NOTED. PT DENIED FURTHER NEEDS. FAMILY AT BEDSIDE.
--- NOTE | 2019-05-20 16:50 | NUR ---
PAGED DR. NICKERSON REGARDING CONSULT PER DR. HAWKINS.
--- NOTE | 2019-05-20 19:00 | NUR ---
BEDSIDE SHIFT REPORT GIVEN TO THE FABRICATOR FOAM RUBBER RN. PT DENIED FURTHER NEEDS.
--- NOTE | 2019-05-20 19:45 | NUR ---
Spoke to Dr. Ortiz. Hgb 8.5 after one unit. Ordered to continue to give second unit of PRBCs and hold 3rd unit until AM lab results.
[2019-05-20 19:47] LABS: HEMATOCRIT 27.5 % (38.2-49.6); HEMOGLOBIN 8.5 g/dL (14.0-18.0)
--- NOTE | 2019-05-20 20:10 | NUR ---
2nd PRBC started.
[2019-05-20] MEDS: ALPRAZOLAM 0.25 MG TAB PO SCH (20:57)
[2019-05-20] MEDS: TRAZODONE HCL 50 MG TAB PO SCH (20:57)
--- NOTE | 2019-05-20 23:10 | NUR ---
2nd prbc completed, no reactions.
[2019-05-21] VITALS (8 sets, daily range): BP systolic 107–157; BP diastolic 54–66
[2019-05-21] MEDS: PANTOPRAZOL 40MG/SOD CHL 0.9% 50 ML IV SCH ×5 (04:15→23:41)
[2019-05-21 05:43] LABS: HEMATOCRIT 28.8 % (38.2-49.6); HEMOGLOBIN 9.2 g/dL (14.0-18.0)
--- NOTE | 2019-05-21 06:48 | NUR ---
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 Kain Ortiz MD, PhD
--- NOTE | 2019-05-21 07:00 | NUR ---
BEDSIDE SHIFT REPORT RECEIVED FROM THE MANAGER TRANSPORTATION RN. EDUCATED PT ABOUT FALL PRECAUTIONS. CALL LIGHT WITH IN EASY REACH. INSTRUCTED PT TO USE CALL LIGHT FOR ALL THE NEEDS. PT VERBALIZED UNDERSTANDING. BED IS LOW AND LOCKED. SIDE RAILS X2. BED ALARM IS ON. DAUGHTER AT BEDSIDE. PT DENIES NEEDS AT THIS TIME.
[2019-05-21 07:11] LABS: ANION GAP 12.8 mmol/L (8-16); CALCIUM 9.4 mg/dL (8.4-10.2); CREATININE, SERUM 2.17 mg/dL (0.72-1.25); POTASSIUM 3.8 mmol/L (3.5-5.1)
--- NOTE | 2019-05-21 07:15 | NUR ---
DR. HAWKINS AT BEDSIDE. HOLD 3RD UNIT OF BLOOD PER THE DR. INFORMED THE SAME TO THE LAB.
[2019-05-21] MEDS: CARVEDILOL 12.5 MG TAB PO SCH ×2 (08:00→16:44)
--- NOTE | 2019-05-21 08:00 | NUR ---
PAGED DR. HAMILTON REGARDING MORNING MEDS. EGD WILL BE DONE SOON CARDIOLOGY CLEARANCE RECEIVED. KEEP THE PT NPO. NO MORNING MEDS PER THE
[2019-05-21] MEDS: INSULIN REGULAR, HUMAN 100 UNIT/1 ML 3ML VIAL SQ SCH ×4 (08:30→21:11)
[2019-05-21] MEDS: GABAPENTIN 300 MG CAP PO SCH ×4 (09:00→20:46)
--- NOTE | 2019-05-21 09:30 | NUR ---
PAGED DR. OSWALD REGARDING CARDIOLOGY CLEARANCE.
[2019-05-21] MEDS: INSULIN GLARGINE 100 UNITS/ML VIAL SQ SCH ×2 (10:00→20:48)
[2019-05-21] MEDS: CEFTRIAXONE SOD 1 GM/NS 50 ML 50 ML IV SCH (10:07)
--- NOTE | 2019-05-21 10:47 | NUR ---
PAGED DR. OSWALD REGARDING CARDIAC CLEARANCE. OKAY TO EGD PER DR. OSWALD. INFORMED THE SAME TO THE DR. HAMILTON. KEEP THE PT NPO AND NO MORNING MEDS PER DR. HAMILTON
--- NOTE | 2019-05-21 13:30 | NUR ---
PT OFF UNIT FOR PROCEDURE IN SAFE CONDITION.
--- NOTE | 2019-05-21 16:00 | NUR ---
PT BACK TO UNIT. DENIES NEEDS AT THIS TIME. AT BEDSIDE.
[2019-05-21] MEDS: ATORVASTATIN 40 MG TAB PO SCH (16:43)
[2019-05-21] MEDS: FENOFIBRATE 145 MG TAB PO SCH (16:43)
[2019-05-21] MEDS: CHOLECALCIFEROL 1,000 UNIT TAB PO SCH (16:43)
[2019-05-21] MEDS: FUROSEMIDE 40 MG TAB PO SCH (16:43)
[2019-05-21] MEDS: FOLIC ACID 1 MG TAB PO SCH (16:43)
[2019-05-21] MEDS: CYANOCOBALAMIN 1,000 MCG TAB PO SCH (16:43)
[2019-05-21] MEDS: LACTATED RINGER'S 1,000 ML IV SCH (16:43)
--- NOTE | 2019-05-21 19:00 | NUR ---
BEDSIDE SHIFT REPORT GIVEN TO THE DOWEL SETTING MACHINE OPERATOR RN. PT DENIED FURTHER NEEDS.
[2019-05-21] MEDS: TRAZODONE HCL 50 MG TAB PO SCH (20:46)
--- NOTE | 2019-05-21 22:25 | Operative Report ---
DATE OF PROCEDURE: 05/21/2019 SURGEON: Al Vasquez MD PROCEDURE: Esophagogastroduodenoscopy with biopsies. INDICATIONS FOR EGD: History of hematemesis, melena. MEDICATIONS: The patient was done under MAC, please see anesthesiologist's note. PROCEDURE IN DETAIL: With the patient in left lateral decubitus position, a flexible fiberoptic Olympus gastroscope was introduced into the esophagus under direct visualization without any difficulty. There was some patchy erythema noted in the distal esophagus. The scope was then advanced with ease into the stomach. Mucosa overlying the antrum and the body revealed some diffuse erythema and low-grade to moderate edema and biopsies were obtained, sent to stain for H pylori. An approximately 5 mm ulcer was noted in the pyloric channel with stigmata of recent hemorrhage, but no active bleeding. The scope was then advanced with ease into the duodenal bulb and approximately a 6 mm ulcer was noted in the distal bulb without active bleeding or stigmata of recent hemorrhage. The scope was advanced into the second portion of the duodenum and that appeared to be within normal limits. The scope was then withdrawn back into the stomach and retroflexed and mucosa overlying the fundus and the cardia appeared to be within normal limits. The scope was then straightened out, it was subsequently withdrawn. The patient tolerated the procedure well. IMPRESSION: 1. Mild distal esophagitis. 2. Gastritis, biopsied, biopsies sent to stain for Helicobacter pylori. 3. Approximately 5 mm pyloric channel ulcer with stigmata of recent hemorrhage, but no active bleeding. 4. Approximately 6 mm duodenal ulcer in distal bulb without active bleeding or stigmata of recent hemorrhage. PLAN: Follow up histology. Continue current therapy. Initiate GI soft diet. Al Vasquez MD [facility] [place] /[id number] cc: Kain Ortiz MD
[2019-05-22] VITALS (8 sets, daily range): BP systolic 123–149; BP diastolic 58–67
--- NOTE | 2019-05-22 00:11 | Consultation ---
DATE OF CONSULTATION: 05/21/2019 Cardiology Consultation REQUESTING PHYSICIAN: Kain Ortiz MD REASON FOR CONSULTATION: Cardiac clearance. HISTORY OF PRESENT ILLNESS: This is an 84-year-old male with history of coronary artery disease status post four-vessel CABG, peripheral arterial disease status post prior stents, carotid artery disease status post carotid stent, chronic systolic heart failure status post ICD, atrial fibrillation, not on anticoagulation, hypertension, hyperlipidemia, diabetes mellitus, and chronic kidney disease, who presents with complaints of hematemesis and hematochezia. Cardiology consulted for preoperative evaluation prior to EGD. He denies any chest pain, shortness breath, palpitations, edema, orthopnea, or PND. Of note, the patient and family indicates that he had respiratory distress after anesthesia several years prior, but were not able to provide any further details. REVIEW OF SYSTEMS: Negative except as per HPI. PAST MEDICAL HISTORY: 1. Coronary artery disease, status post four-vessel CABG. 2. Peripheral arterial disease, status post stents. 3. Carotid artery disease, status post carotid artery stent. 4. Chronic systolic heart failure, status post ICD. 5. Atrial fibrillation, not on anticoagulation. 6. Hypertension. 7. Hyperlipidemia. 8. Diabetes mellitus. 9. Chronic kidney disease. 10. Benign prostatic hypertrophy, status post TURP. PAST SURGICAL HISTORY: 1. CABG. 2. Colonic perforation, status post colostomy. 3. Bilateral knee replacement. 4. Finger amputation. 5. CABG. ALLERGIES: PLEASE SEE EMR. MEDICATIONS: Please see medication list. SOCIAL HISTORY: Denies alcohol or illicit drugs. Prior tobacco use. FAMILY HISTORY: Noncontributory to current illness. PHYSICAL EXAMINATION: VITAL SIGNS: Temperature 98.1 degrees, pulse 87, respirations 19, blood pressure 151/62, and oxygen saturation 96% on room air. GENERAL: Awake, alert, elderly man, in no acute distress. HEENT: Normocephalic, atraumatic. Pupils equal. No scleral icterus. NECK: Supple. No thyromegaly or cervical lymphadenopathy. No carotid bruits. LUNGS: Clear to auscultation bilaterally. No wheeze or crackles. CARDIOVASCULAR: Normal rate, regular rhythm. No murmur. Normal S1, S2. ABDOMEN: Soft and nontender. EXTREMITIES: No edema. NEUROLOGIC: Nonfocal exam. LABORATORY DATA: Hemoglobin 9.2, hematocrit 28.8. Sodium 144, potassium 3.8, chloride 110, CO2 of 25, BUN 50, creatinine 2.17. Chest x-ray, a large cardiac silhouette and pulmonary vascular congestion. IMPRESSION: 1. Coronary artery disease, status post four vessel coronary artery bypass grafting. 2. Hematemesis. 3. Hematochezia. 4. Peripheral arterial disease, status post stent. 5. Carotid artery disease, status post stent. 6. Chronic systolic heart failure, status post ICD. 7. Atrial fibrillation, not on anticoagulation. 8. Hypertension. 9. Hyperlipidemia. 10. Diabetes mellitus. 11. Chronic kidney disease. RECOMMENDATIONS: ICD interrogation revealed normal device function, [id number]-half years battery remaining, 54% V paced, no episodes were observed. Echocardiogram demonstrated a systolic heart failure with LVEF 35% to 40%. He denies chest pain. He may proceed with EGD without further cardiac evaluation. Avoid hypotension, hypovolemia, and hypervolemia. Continue perioperative beta blockade. Continue current cardiac medications. Further evaluation of bleeding per GI. Thank you for this consult. We will continue to follow. Shruthi Salinas MD [facility]/MODL /[id number]
[2019-05-22] MEDS: PANTOPRAZOL 40MG/SOD CHL 0.9% 50 ML IV SCH ×4 (05:21→20:51)
[2019-05-22 06:00] LABS: ANION GAP 16.2 mmol/L (8-16); CALCIUM 9.1 mg/dL (8.4-10.2); CREATININE, SERUM 2.14 mg/dL (0.72-1.25); POTASSIUM 4.2 mmol/L (3.5-5.1)
[2019-05-22] MEDS: LACTATED RINGER'S 1,000 ML IV SCH ×2 (06:35→20:55)
--- NOTE | 2019-05-22 07:08 | NUR ---
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 05/22 Systolic CHF LVEF 35-40%; EGD shows esophagitis, gastritis, Pyloric channel ulcer, duodenal ulcer. PPI and sucralfate; d/c home f/u pcp 1 week; 2 weeks; Cardiology 2 weeks stable d/c>35mins Kain Ortiz MD, PhD
[2019-05-22 07:26] LABS: BASOPHILS % 0.4 % (0.0-1.0); EOSINOPHILS # (AUTO) 0.2 (0.0-0.4); EOSINOPHILS % 3.6 % (0.0-6.0); HEMATOCRIT 28.9 % (38.2-49.6); HEMOGLOBIN 9.2 g/dL (14.0-18.0); LYMPHOCYTES # (AUTO) 1.4 (1.0-3.2); LYMPHOCYTES % 21.1 % (18.0-39.1); MEAN CORPUSCULAR HEMOGLOBIN 30.3 pg (28-32); MEAN CORPUSCULAR HGB CONC 31.8 g/dL (31-35); MEAN CORPUSCULAR VOLUME 95.1 fL (81-99); MONOCYTES # (AUTO) 0.6 (0.2-0.8); MONOCYTES % 8.4 % (4.4-11.3); NEUTROPHILS # (AUTO) 4.4 (2.1-6.9); NEUTROPHILS % 65.9 % (38.7-80.0); PLATELET COUNT 217 x10e3/uL (140-360); RED BLOOD COUNT 3.04 x10e6/uL (4.3-5.7); RED CELL DISTRIBUTION WIDTH 16.1 % (11.7-14.4)
[2019-05-22] MEDS ORDERED: CARAFATE1 GM PO (07:32)
[2019-05-22] MEDS ORDERED: PANTOPRAZOLE SO20 MG PO (07:32)
--- NOTE | 2019-05-22 08:44 | NUR ---
IMM letter delivered and explained to pt and at bedside. They verbalized understanding. Signed copy placed in chart. Copy to pt's . CM business card left with pt's for any questions/concerns.
[2019-05-22] MEDS: SUCRALFATE 1 GM TAB PO SCH ×4 (09:49→20:51)
[2019-05-22] MEDS: CARVEDILOL 12.5 MG TAB PO SCH ×2 (09:53→17:04)
[2019-05-22] MEDS: FOLIC ACID 1 MG TAB PO SCH (09:54)
[2019-05-22] MEDS: FUROSEMIDE 40 MG TAB PO SCH (09:54)
[2019-05-22] MEDS: ATORVASTATIN 40 MG TAB PO SCH (09:54)
[2019-05-22] MEDS: CHOLECALCIFEROL 1,000 UNIT TAB PO SCH (09:55)
[2019-05-22] MEDS: CYANOCOBALAMIN 1,000 MCG TAB PO SCH (09:55)
[2019-05-22] MEDS: GABAPENTIN 300 MG CAP PO SCH ×4 (09:55→20:51)
[2019-05-22] MEDS: FENOFIBRATE 145 MG TAB PO SCH (09:56)
[2019-05-22] MEDS: INSULIN REGULAR, HUMAN 100 UNIT/1 ML 3ML VIAL SQ SCH ×4 (11:20→20:51)
[2019-05-22] MEDS: INSULIN GLARGINE 100 UNITS/ML VIAL SQ SCH ×2 (11:20→20:51)
[2019-05-22] MEDS: TRAMADOL HCL 50 MG TAB PO PRN (11:36)
[2019-05-22] MEDS: CEFTRIAXONE SOD 1 GM/NS 50 ML 50 ML IV SCH (11:38)
--- NOTE | 2019-05-22 12:22 | NUR ---
SAL spoke with TEMITOPE Hadley regarding eval. He states that pt has unsteady gait and required mod assistance with transfer. PT is recommending SNF for safe discharge, unless all goals are met. SAL spoke with Dr. Ortiz and informed him of PT's recommendations. He stated to do SNF eval and he will talk to insurance if needed to get pt approved. SNF eval order placed. Will get choice and send referral.
--- NOTE | 2019-05-22 16:26 | NUR ---
WENT TO GO TALK ABOUT SNF AND WAS TOLD ABOUT BOTTOM DENTURES GETTING LOST IN ED, FAMILY WANTS TO SPEAK WITH SOMEONE ABOUT IT, I WENT AND LOOKED IN ED AND DID NOT SEE THEM, NOTIFIED SENIOR ENGINEERING TEAM LEADER, HE STATES NO ONE TURNED IN BUT WILL LOOK. AND DURING THIS CONVERSATION DAUGHTER DISCOVERED HER DEBIT CARD WAS MISSING AND STATES USED IN [place], I CALLED AND WENT AND FOUND DEBIT CARD AND RETURNED, NOTIFIED LUCY Simon ABOUT THE OTHER TO HAVE SOMEONE COME SPEAK WITH HIM
--- NOTE | 2019-05-22 19:41 | NUR ---
Received bedside report from day nurse. Patient awake and resting in bed, no s/s of distress or c/o pain at this time. All safety measures in place. Family at bedside. Will continue to monitor.
--- NOTE | 2019-05-22 19:58 | Progress Note ---
DATE: 05/22/2019 Cardiology Progress Note OBJECTIVE: VITAL SIGNS: Temperature 98.8 degrees, pulse 68, respiratory rate 20, blood pressure 146/65, and oxygen saturation 97% on room air. GENERAL: Elderly man, in no acute distress, awake and alert. LUNGS: Clear to auscultation bilaterally. No wheezes or crackles. CARDIOVASCULAR: Normal rate. Regular rhythm. No murmur. Normal S1 and S2. ABDOMEN: Soft and nontender. EXTREMITIES: No edema. CARDIAC MEDICATIONS: Carvedilol 12.5 mg p.o. b.i.d., fenofibrate 145 mg p.o. daily, furosemide 40 mg p.o. daily, and atorvastatin 40 mg p.o. daily. LABORATORY DATA: WBC 6.69, hemoglobin 9.2, hematocrit 28.9, and platelets 217. Sodium 143, potassium 4.2, chloride 108, CO2 23, BUN 42, and creatinine 2.14. TELEMETRY: Atrial fibrillation. IMPRESSION: 1. Coronary artery disease, status post 4-vessel coronary artery bypass grafting. 2. Peripheral arterial disease, status post stent. 3. Carotid artery disease, status post stent. 4. Chronic systolic heart failure, status post ICD. 5. Atrial fibrillation, not on anticoagulation. 6. Upper gastrointestinal bleed. 7. Hypertension. 8. Hyperlipidemia. 9. Diabetes mellitus. 10. Chronic kidney disease. RECOMMENDATIONS: Continue current cardiac medications. Monitor volume status closely. Maintain the patient on telemetry. The patient was noted to be unsteady with physical therapy. Remain off anticoagulation given recent GI bleed. He can follow up with his outpatient inspector plumbing, Dr. Guzman as an outpatient to discuss re-initiation of anticoagulation at that time. Management of gastric ulcer per GI. No further cardiac evaluation is indicated at this time. Thank you for this consult. We will continue to follow. Shruthi Salinas MD [facility]/MODL /[id number]
[2019-05-22 19:59] LABS: HEMATOCRIT 26.9 % (38.2-49.6); HEMOGLOBIN 8.7 g/dL (14.0-18.0)
[2019-05-22] MEDS: TRAZODONE HCL 50 MG TAB PO SCH (20:51)
[2019-05-23] VITALS: BP 135/60
--- NOTE | 2019-05-23 00:22 | NUR ---
Dr. Paulie Vasquez at bedside, rounding on patient. Patient doing well. All safety measures in place. Will continue to monitor.
[2019-05-23] MEDS: PANTOPRAZOL 40MG/SOD CHL 0.9% 50 ML IV SCH ×4 (01:33→15:30)
[2019-05-23 04:00] VITALS: BP 134/64
--- NOTE | 2019-05-23 07:09 | NUR ---
Bedside report given to day nurse. Patient resting in bed, no s/s of distress or c/o pain at this time. All safety measures in place. Family at bedside.
[2019-05-23 07:39] VITALS: BP 128/60
--- NOTE | 2019-05-23 07:47 | NUR ---
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 05/22 Systolic CHF LVEF 35-40%; EGD shows esophagitis, gastritis, Pyloric channel ulcer, duodenal ulcer. PPI and sucralfate; 05/23 d/c planning; 05/24 d/c to facility; no new changes; cont meds; Kain Ortiz MD, PhD.
[2019-05-23] MEDS: SUCRALFATE 1 GM TAB PO SCH ×2 (08:30→12:45)
[2019-05-23] MEDS: CARVEDILOL 12.5 MG TAB PO SCH (08:31)
[2019-05-23] MEDS: FOLIC ACID 1 MG TAB PO SCH (08:31)
[2019-05-23] MEDS: FENOFIBRATE 145 MG TAB PO SCH (08:32)
[2019-05-23] MEDS: ATORVASTATIN 40 MG TAB PO SCH (08:32)
[2019-05-23] MEDS: FUROSEMIDE 40 MG TAB PO SCH (08:32)
[2019-05-23] MEDS: GABAPENTIN 300 MG CAP PO SCH ×2 (08:32→13:57)
[2019-05-23] MEDS: CHOLECALCIFEROL 1,000 UNIT TAB PO SCH (08:33)
[2019-05-23] MEDS: CYANOCOBALAMIN 1,000 MCG TAB PO SCH (08:33)
[2019-05-23 08:55] VITALS: BP 128/60
[2019-05-23] MEDS: INSULIN REGULAR, HUMAN 100 UNIT/1 ML 3ML VIAL SQ SCH ×2 (09:00→12:45)
[2019-05-23] MEDS: INSULIN GLARGINE 100 UNITS/ML VIAL SQ SCH (09:00)
--- NOTE | 2019-05-23 09:14 | NUR ---
[facility] FACILITY DISCHARGE INFORMATION PATIENT HAS BEEN ACCEPTED TO: NAME: [facility] ADDRESS: [id number] ACCEPTING MD: ROSS ROOM:[id number] NURSE CALL REPORT TO: [phone] IMM SIGNED AND OBTAINED (if applicable): YES THE FOLLOWING DOCUMENTS MUST ACCOMPANY PATIENT FOR TRANSFER: COPIED CHART: YES
[2019-05-23] MEDS: LACTATED RINGER'S 1,000 ML IV SCH (09:15)
[2019-05-23 09:52] LABS: HEMATOCRIT 27.7 % (38.2-49.6); HEMOGLOBIN 8.9 g/dL (14.0-18.0)
[2019-05-23] MEDS: CEFTRIAXONE SOD 1 GM/NS 50 ML 50 ML IV SCH (11:00)
[2019-05-23 11:52] VITALS: BP 142/63
--- NOTE | 2019-05-23 13:52 | NUR ---
CALLED REPORT TO [facility] [place] [facility] [phone], CALLED [facility] SPOKE TO GÉNESIS, SHE STATED THAT AMBULANCE SHOULD BE HER IN ABOUT 45 MINUTES.
--- NOTE | 2019-05-24 01:07 | Progress Note ---
DATE: 05/23/2019 Cardiology Progress Note SUBJECTIVE: The patient denies chest pain or shortness of breath. He reports he is being discharged to nursing facility today. OBJECTIVE: VITAL SIGNS: Temperature 97.5 degrees, pulse 62, respiratory rate 18, blood pressure 128/60, and oxygen saturation 96% on room air. GENERAL: An elderly man, in no acute distress. Awake and alert. LUNGS: Clear to auscultation bilaterally. No wheezes or crackles. CARDIOVASCULAR: Normal rate and regular rhythm. No murmur. Normal S1 and S2. ABDOMEN: Soft and nontender. EXTREMITIES: No edema. CARDIAC MEDICATIONS: Fenofibrate 145 mg p.o. daily, furosemide 40 mg p.o. daily, atorvastatin 40 mg p.o. daily, and carvedilol 12.5 mg p.o. b.i.d. LABORATORY DATA: Hemoglobin 8.9 and hematocrit 27.7. TELEMETRY: Atrial fibrillation. IMPRESSION: 1. Acute anemia secondary to upper gastrointestinal bleeding. 2. Coronary artery disease status post 4-vessel coronary artery bypass grafting. 3. Peripheral arterial disease, status post stent. 4. Carotid artery disease status post stent. 5. Chronic systolic heart failure, status post ICD. 6. Atrial fibrillation on anticoagulation. 7. Hypertension. 8. Hyperlipidemia. 9. Diabetes mellitus. 10. Chronic kidney disease. RECOMMENDATIONS: Continue current cardiac medications. Monitor volume status closely. Keep the patient on telemetry while admitted. No further cardiac evaluation is indicated at this time. Given the patient's and recent GI bleeding, keep the patient off anticoagulation. He will need to follow up with his outpatient supervisor baking, Dr. Guzman as an outpatient to discuss re-initiation and management of gastric ulcer per GI. Thank you for this consult. We will continue to follow. Shruthi Salinas MD [facility]/MODL /[id number]
--- NOTE | 2019-05-24 12:14 | NUR ---
ADDENDUM to H&P Physical PE tired appearing anicteric ns1s2 mod bs soft nt nd no e/t skin dry alert; wells flat affect Kain Ortiz MD, PHD.
== END 2019-05-23 15:37 | DRG 377 ==
LOC: ER 21:42 → ERHOLD 05-19 00:36 → MED/SURG2 05-19 00:49
PROVIDERS: ADMIT Internal Medicine; ATTEND Internal Medicine
PROC: 30233N1 Transfusion of Nonautologous Red Blood Cells into Peripheral Vein, Percutaneous Approach (ICD-10-PCS; 2019-05-21)
PROC: 0DB78ZX Excision of Stomach, Pylorus, Via Natural or Artificial Opening Endoscopic, Diagnostic (ICD-10-PCS; principal; 2019-05-21 15:00)
DX: K25.4 Chronic or unspecified gastric ulcer with hemorrhage (principal); G93.41 Metabolic encephalopathy; I50.22 Chronic systolic (congestive) heart failure; N18.4 Chronic kidney disease, stage 4 (severe); N39.0 Urinary tract infection, site not specified; I13.0 Hypertensive heart and chronic kidney disease with heart failure and stage 1 through stage 4 chronic kidney disease, or unspecified chronic kidney disease; N17.9 Acute kidney failure, unspecified; K26.9 Duodenal ulcer, unspecified as acute or chronic, without hemorrhage or perforation; E11.22 Type 2 diabetes mellitus with diabetic chronic kidney disease; Z79.4 Long term (current) use of insulin; E87.5 Hyperkalemia; D63.1 Anemia in chronic kidney disease; I25.10 Atherosclerotic heart disease of native coronary artery without angina pectoris; I25.83 Coronary atherosclerosis due to lipid rich plaque; Z95.1 Presence of aortocoronary bypass graft; Z95.820 Peripheral vascular angioplasty status with implants and grafts; I48.91 Unspecified atrial fibrillation; Z96.653 Presence of artificial knee joint, bilateral; N40.0 Benign prostatic hyperplasia without lower urinary tract symptoms; Z95.810 Presence of automatic (implantable) cardiac defibrillator; E11.40 Type 2 diabetes mellitus with diabetic neuropathy, unspecified; E11.65 Type 2 diabetes mellitus with hyperglycemia; D50.0 Iron deficiency anemia secondary to blood loss (chronic)
CPT/HCPCS: 36415; 43239; 71045; 74176; 80048; 80053; 80061; 81001; 82550; 82553; 82607; 82728; 82948; 83036; 83540; 84466; 84484; 85014; 85018; 85025; 85610; 85730; 86850; 86900; 86920; 87086; 88305; 88312; 93005; 93306; 96372; 96374; 96375; 96376; 97139; 99284; J0696; J1815; J1817; J2405; J7050; J7121; P9016

== ENCOUNTER 2019-05-24 22:27 | Emergency (ER) | payer MEDICARE ==
[~2019-05-24] VITALS: Ht 188 cm; Wt 102.1 kg
[~2019-05-24 22:27] MED LIST changes: +CARAFATE1 GM PO; +MYRBETRIQ25 MG PO; +PANTOPRAZOLE SO20 MG PO; +VITAMIN B-121000 MCG PO
--- NOTE | 2019-05-24 23:33 | Diagnostic Imaging Report ---
Exam: Head CT without contrast History: Trauma, fall Comparison studies: Head CT 11/27/2018 Technique: Axial images were obtained from the skull base to the vertex. Coronal and sagittal images reconstructed from the axial data. Dose modulation, iterative reconstruction, and/or weight based adjustment of the mA/kV was utilized to reduce the radiation dose to as low as reasonably achievable. Radiation dose: Total DLP: 1621 mGy*cm. Estimated effective dose: DLP x 0.015 Intravenous contrast: None Findings: Exam is somewhat limited by artifacts related to patient motion. In spite of limitations: Scalp: No abnormalities. Bones: No fractures, blastic or lytic lesions. Brain sulci: Moderately prominent. Ventricles: Moderate compensatory dilatation. No hydrocephalus. Extra-axial spaces: No masses, no fluid collection. Parenchyma: No mass, acute hemorrhage or acute cortical insult. Hypodensities in the periventricular white matter are nonspecific but most age-related and chronic microvascular ischemic changes. Sellar/suprasellar region: No abnormalities. Craniocervical junction: Patent foramen magnum. No Chiari one malformation. Incidental findings: Atherosclerotic calcifications in the carotid siphons and intradural vertebral arteries. Additional there are scattered vascular calcifications throughout the scalp. IMPRESSION: Exam limited by artifacts related to patient motion. In spite of limitations: 1. No acute abnormalities identified. 2. No changes from the prior head CT of 11/27/2018. 3. Moderate generalized parenchymal volume loss. 4. Mild microvascular ischemic changes. Signed by: Dr. Samm Palma M.D. on 05/24/2019 11:30 PM
--- NOTE | 2019-05-24 23:44 | Diagnostic Imaging Report ---
History: Trauma, fall Comparison studies: Cervical spine CT 11/27/2018 Technique: Axial images were obtained through the cervical region.. Coronal and sagittal images reconstructed from the axial data.. Intravenous contrast: None Findings: Soft tissue injuries: No gross acute abnormalities. Atlantoaxial articulation: Intact. Alignment: Normal lordosis. No subluxations. Cervicomedullary junction: No abnormalities. The foramen magnum is patent. Vertebrae: No fractures, infection or neoplasm. 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 Calcified disc bulges from C3 to C6 and disc osteophyte complex at C6-C7 result in mild canal stenosis. Varying degrees of moderate to severe bilateral degenerative foraminal stenosis from C3 to C7 due to uncovertebral and facet arthrosis. Incidental findings: Severe scattered calcified atherosclerosis with right carotid stent in place. Emphysema in the partially imaged lungs bilaterally with scarring at the left lung apex dependent upper lobe atelectasis. IMPRESSION: 1. No cervical spine fracture or subluxation. 2. Multilevel degenerative changes as described. Ligament, spinal cord and or vascular abnormalities cannot be excluded on the basis of this examination Signed by: Dr. Samm Palma M.D. on 05/24/2019 11:40 PM
--- NOTE | 2019-05-25 | NUR ---
greta from [facility] called for transport
== END 2019-05-25 01:15 | disposition home or self-care (01) ==
LOC: ER 22:27
DX: Z04.3 Encounter for examination and observation following other accident (principal); W01.0XXA Fall on same level from slipping, tripping and stumbling without subsequent striking against object, initial encounter; Y92.89 Other specified places as the place of occurrence of the external cause; I10 Essential (primary) hypertension; E11.9 Type 2 diabetes mellitus without complications; I25.10 Atherosclerotic heart disease of native coronary artery without angina pectoris; Z95.810 Presence of automatic (implantable) cardiac defibrillator
CPT/HCPCS: 70450; 72125; 99283